=== PATIENT | female | born 1940 | race Hispanic/Latino ===

== ENCOUNTER 2016-07-01 10:25 | Emergency (ER) | payer MEDICARE, MEDICAID ==
[2016-07-01] MEDS ORDERED: Promethazine/Cod 6.25mg-10mg/5ml Syr UD ONE (11:07)
[2016-07-01 11:08] VITALS: TEMP 98
[2016-07-01] MEDS ORDERED: Albuterol-Ipratrop 3 mg / 0.5 (3 ml) UD INH STA ×2 (11:08→11:09)
[2016-07-01] MEDS ORDERED: Promethazine 6.25 MG/5 ML CUP PO STA (11:08)
--- NOTE | 2016-07-01 11:11 | ED PDOC ---
HPI: CCC, URI, Sore Throat Time Seen by Provider: 07/01/16 10:46 Chief Complaint (Nursing): Cough, Cold, Congestion Chief Complaint (Provider): Cough History Per: Patient History/Exam Limitations: no limitations Have you had recent travel within the past 21 days to any of the following countries: [place], [place], [place] or [place]?: Yes Other Location:: [place] Onset/Duration Of Symptoms: Days (1 week) Current Symptoms Are (Timing): Still Present Location Of Pain: Other (chest pain present during cough) Associated Symptoms: Cough, Sputum. denies: Fever, Chills, Other (dyspnea) Severity: Moderate Additional Complaint(s): Irish Malave is a 75 year old female, with a past medical history of hypothyroidism, who presents to the emergency department for the evaluation of a productive cough, that the patient has been experiencing for 1 week. Patient was recently seen by her primary medical doctor in which she had a chest x-ray done with no signs of infection. She recently traveled to [place], during which time her cough showed signs of improvement; however, upon re-arrival to [place] , her cough worsened and began producing phlegm. Associated chest pain is present when the patient coughs. Denies a fever, chills, or shortness of breath. Of note, patient reports that she has never smoked in her life. PMD: Don Aj Past Medical History Reviewed: Historical Data, Nursing Documentation, Vital Signs Vital Signs: Last Vital Signs Temp 98.0 F 07/01/16 11:06 Pulse 80 07/01/16 16:58 Resp 20 07/01/16 16:58 BP 135/77 07/01/16 16:58 Pulse Ox 98 07/01/16 16:58 - Medical History PMH: Anxiety, Hypothyroidism - Surgical History Other surgeries: Right Heel Surgery - Family History Family History: States: No Known Family Hx - Social History Current smoker - smoking cessation education provided: No Ex-Smoker (has not smoked in the last 12 months): No Alcohol: None Drugs: Denies - Home Medications Home Medications: Ambulatory Orders Medication Instructions Recorded Albuterol HFA [Ventolin HFA 90 2 puff IH Q4H PRN #1 inh 07/01/16 mcg/actuation (8 g)] Azithromycin 1 tab PO DAILY #6 tab 04/28/17 Prednisone 50 mg PO DAILY #4 tablet 07/01/16 - Allergies Allergies/Adverse Reactions: Allergies Allergy/AdvReac Type Severity Reaction Status Date / Time No Known Allergies Allergy Verified 07/01/16 11:05 Review of Systems ROS Statement: Except As Marked, All Systems Reviewed And Found Negative Constitutional: Negative for: Fever, Chills Cardiovascular: Positive for: Chest Pain (present when patient coughs) Respiratory: Positive for: Cough, Sputum. Negative for: Shortness of Breath Physical Exam - Reviewed Nursing Documentation Reviewed: Yes Vital Signs Reviewed: Yes - Physical Exam Appears: Positive for: Non-toxic, No Acute Distress Head Exam: Positive for: ATRAUMATIC, NORMOCEPHALIC Skin: Positive for: Normal Color, Warm, Dry ENT: Positive for: Normal ENT Inspection. Negative for: Pharyngeal Erythema, Tonsillar Exudate, Tonsillar Swelling Neck: Positive for: Normal, Painless ROM Cardiovascular/Chest: Positive for: Regular Rate, Rhythm. Negative for: Murmur Respiratory: Positive for: Wheezing (b/l expiratory wheeze), Respiratory Distress. Negative for: Normal Breath Sounds Gastrointestinal/Abdominal: Positive for: Normal Exam, Soft. Negative for: Tenderness Back: Positive for: Normal Inspection. Negative for: L CVA Tenderness, R CVA Tenderness Extremity: Positive for: Normal ROM. Negative for: Tenderness Neurologic/Psych: Positive for: Alert, Oriented - Laboratory Results Result Diagrams: 07/01/16 13:00 07/01/16 13:00 - ECG O2 Sat by Pulse Oximetry: 97 (RA) Pulse Ox Interpretation: Normal Medical Decision Making Medical Decision Makin:46 Initial Impression: allergic bronchospasm Initial Plan: * Chest X-Ray * Peak Flow Pre/Post Treatment (x2) * Albuterol/Iptratropium 3 ml INH (x2) * Promethazine 25 mg PO * predniSONE 40 mg PO * Reevaluation Scribe Attestation: Documented by Luis Carlos Steve, acting as a scribe for Carlene aCmara MD. Provider Scribe Attestation: All medical record entries made by the Scribe were at my direction and personally dictated by me. I have reviewed the chart and agree that the record accurately reflects my personal performance of the history, physical exam, medical decision making, and the department course for this patient. I have also personally directed, reviewed, and agree with the discharge instructions and disposition. Disposition - Clinical Impression Clinical Impression: Bronchitis - Disposition Disposition: Transfer of Care Disposition Time: 15:00 Condition: IMPROVED Additional Instructions: FOLLOW UP SCHEDULED WITH YOUR PMD ON MONDAY Prescriptions: Albuterol HFA [Ventolin HFA 90 mcg/actuation (8 g)] 2 puff IH Q4H PRN #1 inh PRN Reason: ASTHMA Azithromycin 1 tab PO DAILY #6 tab Prednisone 50 mg PO DAILY #4 tablet Instructions: Acute Bronchitis (ED), Wheezing (ED) Patient Signed Over To: Veronica Renee Handoff Comments: pending CTA
[2016-07-01] MEDS ORDERED: Promethazine 6.25 MG/5 ML CUP ONE (11:19)
--- NOTE | 2016-07-01 12:06 | RAD ---
HISTORY: cough, wheezing COMPARISON: No prior. TECHNIQUE: Chest PA and lateral FINDINGS: LUNGS: The lungs are clear. There is no focal consolidation. PLEURA: No significant pleural effusion identified. No pneumothorax apparent. CARDIOVASCULAR: Normal. OSSEOUS STRUCTURES: No significant abnormalities. VISUALIZED UPPER ABDOMEN: Normal. OTHER FINDINGS: None. IMPRESSION: No active pulmonary disease.
[2016-07-01 13:12] LABS: BASO % 0.9 % (0.0-2.0); EOS # 0.2 K/uL (0.0-0.7); EOS % 3.4 % (0.0-4.0); HEMATOCRIT 40.5 % (34.0-47.0); LYMPH # 1.3 K/uL (1.0-4.3); LYMPH % 26.9 % (20.0-40.0); MEAN CELL VOLUME 96.5 fl (81.0-99.0); MEAN CORPUSCULAR HEMOGLOBIN 32.7 pg (27.0-31.0); MEAN CORPUSCULAR HGB CONC 33.9 g/dL (33.0-37.0); MEAN PLATELET VOLUME 8.8 fl (7.2-11.7); MONO # 0.5 K/uL (0.0-0.8); MONO % 9.6 % (0.0-10.0); NEUT # 2.9 K/uL (1.8-7.0); NEUT % 59.2 % (50.0-75.0); RED CELL DISTRIBUTION WIDTH 14.5 % (11.5-14.5); WHITE BLOOD COUNT 4.9 K/uL (4.8-10.8)
[2016-07-01 13:23] LABS: BLOOD UREA NITROGEN 17 mg/dl (7-17); CALCIUM 9.2 mg/dL (8.4-10.2); CARBON DIOXIDE 29 mmol/L (22-30); CHLORIDE 105 mmol/L (98-107); GFR AFRICAN-AMERICAN 53; GLUCOSE,RANDOM 146 mg/dL (65-105); POTASSIUM 3.8 MMOL/L (3.6-5.0); SODIUM 143 mmol/l (132-148)
[2016-07-01] MEDS ORDERED: Iodixanol 320 MG/ML 100 ML BOTTLE IV ONE (15:19)
[2016-07-01] MEDS ORDERED: Sodium Chloride 0.9% 50 ML IV ONE (15:19)
--- NOTE | 2016-07-01 15:30 | ED PDOC ---
- Laboratory Results Result Diagrams: 07/01/16 13:00 07/01/16 13:00 - ECG O2 Sat by Pulse Oximetry: 97 (RA) Medical Decision Making Medical Decision Makin:00 Patient transferred over to provider by Dr. Concepcion. Pending ER workup, re- assessment, and final disposition. Accession No. : [id number] Patient Name / ID : MILLA CAVANAUGH / [id number] Exam Date : 07/01/2016 15:35:49 ( Approved ) Study Comment : Sex / Age : F / 75Y Creator : Daniel Cobb MD Dictator : Daniel Cobb MD Metal Furniture Polisher : Mason Liner : Daniel Cobb MD Approver2 : Report Date : 07/01/2016 16:06:30 My Comment : PROCEDURE: CT Chest with contrast (Pulmonary Angiogram) HISTORY: r/o PE COMPARISON: None available. TECHNIQUE: Axial computed tomography images were obtained of the chest in the pulmonary arterial phase of enhancement. Coronal and sagittal reformatted images were created and reviewed. Maximum intensity projection (MIP) reconstructed images in the following planes : Axial projection only. Intravenous contrast dose: 80 cc Visipaque 320. Radiation dose: Total exam DLP = 347.75 mGy-cm. This CT exam was performed using one or more of the following dose reduction techniques: Automated exposure control, adjustment of the mA and/or kV according to patient size, and/or use of iterative reconstruction technique. FINDINGS: PULMONARY ARTERIES: Unremarkable. No pulmonary embolism. AORTA: No acute findings. No thoracic aortic aneurysm. LUNGS: Dependent atelectasis at the lung bases. PLEURAL SPACES: Unremarkable. No effusion or pneuomothorax. HEART: Unremarkable. No cardiomegaly. No significant pericardial effusion. LYMPH NODES: No lymphadenopathy. BONES, CHEST WALL: Unremarkable. No fracture or destructive lesion OTHER FINDINGS: Enlargement of the right thyroid lobe. Jimmie elective thyroid ultrasound advised. IMPRESSION: Unremarkable CT pulmonary angiogram. No pulmonary embolus. Additional benign and/or incidental findings described above. 430p On reeval pt's breathing comfortably. No wheeze on auscultation. DW pt findings and plan of care. Will be rx'd as acute bronchitis and pt has f/u with PMD July 05. Reasons to RTER reviewed and pt eager to go home. Scribe Attestation: Documented by Luis Carlos Steve, acting as a scribe for Veronica Renee MD. Provider Scribe Attestation: All medical record entries made by the Scribe were at my direction and personally dictated by me. I have reviewed the chart and agree that the record accurately reflects my personal performance of the history, physical exam, medical decision making, and the department course for this patient. I have also personally directed, reviewed, and agree with the discharge instructions and disposition. Disposition Counseled Patient/Family Regarding: Studies Performed, Diagnosis, Need For Followup, Rx Given - Clinical Impression Clinical Impression: Bronchitis - POA Present On Arrival: None - Disposition Disposition: Routine/Home Disposition Time: 16:30 Condition: IMPROVED Additional Instructions: FOLLOW UP SCHEDULED WITH YOUR PMD ON MONDAY Prescriptions: Albuterol HFA [Ventolin HFA 90 mcg/actuation (8 g)] 2 puff IH Q4H PRN #1 inh PRN Reason: ASTHMA Azithromycin 1 tab PO DAILY #6 tab Prednisone 50 mg PO DAILY #4 tablet Instructions: Acute Bronchitis (ED), Wheezing (ED)
--- NOTE | 2016-07-01 16:08 | CT ---
PROCEDURE: CT Chest with contrast (Pulmonary Angiogram) HISTORY: r/o PE COMPARISON: None available. TECHNIQUE: Axial computed tomography images were obtained of the chest in the pulmonary arterial phase of enhancement. Coronal and sagittal reformatted images were created and reviewed. Maximum intensity projection (MIP) reconstructed images in the following planes: Axial projection only. Intravenous contrast dose: 80 cc Visipaque 320. Radiation dose: Total exam DLP = 347.75 mGy-cm. This CT exam was performed using one or more of the following dose reduction techniques: Automated exposure control, adjustment of the mA and/or kV according to patient size, and/or use of iterative reconstruction technique. FINDINGS: PULMONARY ARTERIES: Unremarkable. No pulmonary embolism. AORTA: No acute findings. No thoracic aortic aneurysm. LUNGS: Dependent atelectasis at the lung bases. PLEURAL SPACES: Unremarkable. No effusion or pneuomothorax. HEART: Unremarkable. No cardiomegaly. No significant pericardial effusion. LYMPH NODES: No lymphadenopathy. BONES, CHEST WALL: Unremarkable. No fracture or destructive lesion OTHER FINDINGS: Enlargement of the right thyroid lobe. Jimmie elective thyroid ultrasound advised. IMPRESSION: Unremarkable CT pulmonary angiogram. No pulmonary embolus. Additional benign and/or incidental findings described above.
[2016-07-01 17:00] VITALS: BP 135/77; PULSE 80; RESP 20
[2016-07-04 20:46] VITALS: O2SAT 97
== END 2016-07-01 17:03 | disposition home or self-care (01) ==
LOC: H.ER 10:25
DX: J20.9 Acute bronchitis, unspecified (principal); R06.2 Wheezing; R05 Cough; E03.9 Hypothyroidism, unspecified
CPT/HCPCS: 71020; 71275; 80048; 83880; 84484; 85025; 85378; 87804; 94640; 99283; Q9967

== ENCOUNTER 2017-03-07 18:31 | Emergency (ER) | payer MEDICARE, MEDICAID ==
[2017-03-07 18:52] VITALS: RESP 18; TEMP 97.5; O2SAT 95
[2017-03-07] MEDS ORDERED: Sodium Chloride 0.9% 1,000 ML IV STA (19:06)
--- NOTE | 2017-03-07 19:25 | ED PDOC ---
HPI: Abdomen Time Seen by Provider: 03/07/17 18:56 Chief Complaint (Nursing): Abdominal Pain Chief Complaint (Provider): abdominal pain History Per: Patient History/Exam Limitations: no limitations Onset/Duration Of Symptoms: Days (2), Gradual Current Symptoms Are (Timing): Still Present Context: Food Severity: Moderate Location Of Pain/Discomfort: LLQ, Periumbilical (radiate to back) Quality Of Discomfort: Sharp Associated Symptoms: Nausea, Vomiting, Loss Of Appetite, Back Pain, Constipation. denies: Diarrhea, Chest Pain, Urinary Symptoms Exacerbating Factors: Food Alleviating Factors: None Last Bowel Movement: Yesterday Additional Complaint(s): 76yo female c/o central to lower left abd pain radiating to the back associated with nausea and several episodes nonbloody vomiting. Denies diarrhea, fever, urinary symptoms, cough or prior history of similar. Last BM yesterday normal. States had R neck surgery for "tumor" at [facility] about 6 wks ago. Denies pain to that area. Due to followup, unsure if she requires chemo or other treatment. Hx of HIV xapprox 5 years on HAART T cells around 400 per pt/ Past Medical History Reviewed: Historical Data, Nursing Documentation, Vital Signs Vital Signs: Last Vital Signs Temp 97.5 F L 03/07/17 18:48 Pulse 78 03/07/17 18:48 Resp 18 03/07/17 18:48 BP 180/94 H 03/07/17 18:48 Pulse Ox 95 03/07/17 20:20 - Medical History PMH: Anxiety, HIV, Hypothyroidism Other PMH: thyroid - Surgical History Other surgeries: R neck surgery, thyroid - Family History Family History: States: Unknown Family Hx - Living Arrangements Living Arrangements: With Family (visiting from [place]) - Social History Current smoker - smoking cessation education provided: No - Home Medications Home Medications: Ambulatory Orders Medication Instructions Recorded Albuterol HFA [Ventolin HFA 90 2 puff IH Q4H PRN #1 inh 07/01/16 mcg/actuation (8 g)] Azithromycin 1 tab PO DAILY #6 tab 07/01/16 Prednisone 50 mg PO DAILY #4 tablet 07/01/16 Dicyclomine [Dicyclomine HCl] 10 mg PO Q8 PRN #10 cap 03/07/17 Ibuprofen [Motrin Tab] 600 mg PO Q6 PRN #15 tab 03/07/17 Ondansetron [Zofran] 4 mg PO Q6H PRN #10 tab 03/07/17 - Allergies Allergies/Adverse Reactions: Allergies Allergy/AdvReac Type Severity Reaction Status Date / Time No Known Allergies Allergy Verified 07/01/16 11:05 Review of Systems Constitutional: Positive for: Malaise Eyes: Negative for: Pain, Conjunctivae Inflammation ENT: Negative for: Nose Discharge, Throat Pain Cardiovascular: Negative for: Chest Pain, Palpitations Respiratory: Negative for: Cough, Shortness of Breath Gastrointestinal: Positive for: Nausea, Vomiting, Abdominal Pain. Negative for : Hematochezia, Hematemesis Genitourinary Female: Negative for: Dysuria, Hematuria Musculoskeletal: Positive for: Back Pain. Negative for: Neck Pain, Arm Pain, Leg Pain Skin: Negative for: Rash, Lesions, Jaundice Neurological: Negative for: Weakness, Numbness, Headache, Dizziness Psych: Negative for: Suicidal ideation Physical Exam - Reviewed Nursing Documentation Reviewed: Yes Vital Signs Reviewed: Yes - Physical Exam Appears: Positive for: Well, Non-toxic, No Acute Distress Head Exam: Positive for: ATRAUMATIC, NORMAL INSPECTION, NORMOCEPHALIC Skin: Positive for: Normal Color, Warm, DRY Eye Exam: Positive for: EOMI, Normal appearance, PERRL ENT: Positive for: Other (R neck incision from lower jaw to anterior ear intact , dry, nontender). Negative for: Nasal Congestion Neck: Positive for: Normal, Painless ROM Cardiovascular/Chest: Positive for: Regular Rate, Rhythm Respiratory: Positive for: Normal Breath Sounds. Negative for: Decreased Breath Sounds Gastrointestinal/Abdominal: Positive for: Bowel Sounds, Soft, Tenderness ( periumbilical and LLQ), Guarding Back: Positive for: Normal Inspection Extremity: Positive for: Normal ROM Neurologic/Psych: Positive for: Alert, Oriented. Negative for: Motor/Sensory Deficits - Laboratory Results Result Diagrams: 03/07/17 19:35 03/07/17 19:35 - ECG O2 Sat by Pulse Oximetry: 95 Medical Decision Making Medical Decision Making: workup for abd pain initiated with labs, UA and CT abd pelv r/o diverticulitis, appendicitis or obstruction Given toradol, zofran and IVF bolus and monitored for improvement labs reviewed, unremarkable FINDINGS: Lower thorax: Subsegmental atelectasis versus scarring at lung bases. ABDOMEN: Liver: Hepatomegaly. Gallbladder and bile ducts: Cholecystectomy. No ductal dilation. Pancreas: Unremarkable. No mass. No ductal dilation. Spleen: Unremarkable. No splenomegaly. Adrenals: Unremarkable. No mass. Kidneys and ureters: Bilateral renal cortical cysts. No hydronephrosis. Stomach and bowel: Colonic diverticulosis. Appendix: No findings to suggest acute appendicitis. PELVIS: Bladder: Unremarkable. No mass. Reproductive: Unremarkable as visualized. ABDOMEN and PELVIS: Intraperitoneal space: Unremarkable. No free air. No significant fluid collection. AFSHAN LOYOLA | Final Radiology Report CONFIDENTIALITY STATEMENT This report is intended only for use by the referring physician, and only in accordance with law. If you received this in error, call [phone]. Page 2 of 2 Bones/joints: Dextroscoliosis. Diffuse lumbar degenerative changes. No acute fracture. No dislocation. Soft tissues: Small fat containing umbilical hernia. Vasculature: Atherosclerotic vascular disease. No abdominal aortic aneurysm. Lymph nodes: Unremarkable. No enlarged lymph nodes. IMPRESSION: 1. Diverticulosis, without evidence of acute diverticulitis. 2. Remainder of findings as above. Thank you for allowing us to participate in the care of your patient. Dictated and Authenticated by: Matthew Betts MD 03/07/2017 11:41 PM Eastern Time ([place] & [place]) On re-eval at 1145pm pain improved, abdomen nontender, no vomiting, tolerated PO , ambulating to BR without difficulty. DC from ED w yoanna emanuel and motrin Followup PMD/ GI Disposition - Clinical Impression Clinical Impression: Abdominal discomfort, Vomiting - Patient ED Disposition Is Patient to be Admitted: No Counseled Patient/Family Regarding: Studies Performed, Diagnosis, Need For Followup, Rx Given - Disposition Referrals: Ried ZULUAGA,MD Gini [Medical Doctor] - Disposition: Routine/Home Disposition Time: 23:49 Condition: STABLE Additional Instructions: Advance diet slowly and as tolerated. Avoid dairy for 5-7 days. Return to ER for any fever, worse or new pain. Prescriptions: Dicyclomine [Dicyclomine HCl] 10 mg PO Q8 PRN #10 cap PRN Reason: Gi Distress Ibuprofen [Motrin Tab] 600 mg PO Q6 PRN #15 tab PRN Reason: Pain, Moderate (4-7) Ondansetron [Zofran] 4 mg PO Q6H PRN #10 tab PRN Reason: Nausea/Vomiting Instructions: Acute Nausea and Vomiting (ED), Acute Abdominal Pain (ED) Forms: [employer] (Swedish)
[2017-03-07 19:54] LABS: BASO # 0.1 K/uL (0.0-0.2); BASO % 0.9 % (0.0-2.0); EOS # 0.1 K/uL (0.0-0.7); EOS % 1.7 % (0.0-4.0); HEMOGLOBIN 14.3 g/dL (12.0-16.0); LYMPH # 2.6 K/uL (1.0-4.3); LYMPH % 40.6 % (20.0-40.0); MEAN CELL VOLUME 99.1 fl (81.0-99.0); MEAN CORPUSCULAR HEMOGLOBIN 32.5 pg (27.0-31.0); MEAN CORPUSCULAR HGB CONC 32.8 g/dL (33.0-37.0); MEAN PLATELET VOLUME 8.8 fl (7.2-11.7); MONO # 0.6 K/uL (0.0-0.8); MONO % 9.5 % (0.0-10.0); NEUT % 47.3 % (50.0-75.0); NRBC % 0.1 % (0.0-0.0); RBC 4.4 Mil/uL (3.80-5.20); RED CELL DISTRIBUTION WIDTH 13.9 % (11.5-14.5); WHITE BLOOD COUNT 6.3 K/uL (4.8-10.8)
[2017-03-07 19:56] LABS: URINE BACTERIA RARE (<OCC); URINE BILIRUBIN NEGATIVE (NEGATIVE); URINE BLOOD SMALL (NEGATIVE); URINE CLARITY CLEAR (Clear); URINE COLOR YELLOW (YELLOW); URINE GLUCOSE (UA) NEG (Normal); URINE LEUKOCYTE ESTERASE TRACE Leu/uL (Negative); URINE NITRATE NEGATIVE (NEGATIVE); URINE PROTEIN NEGATIVE (NEGATIVE); URINE UROBILINOGEN 0.2-1.0 mg/dL (0.2-1.0)
[2017-03-07 19:58] LABS: SQUAMOUS EPITHIAL 1 /hpf (0-5)
[2017-03-07 19:59] LABS: ALBUMIN 4.6 g/dL (3.5-5.0); CALCIUM 9.8 mg/dL (8.4-10.2)
[2017-03-07 20:08] LABS: ALB/GLOB RATIO 1.2 (1.0-2.1)
[2017-03-07] MEDS ORDERED: Iohexol 240 (50 ml) PO ONE (20:54)
[2017-03-07] MEDS ORDERED: Iohexol 240 (50 ml) ONE (20:56)
[2017-03-07] MEDS ORDERED: Iodixanol 320 MG/ML 100 ML BOTTLE IV ONE (22:46)
[2017-03-07] MEDS ORDERED: Sodium Chloride 0.9% 50 ML IV ONE (22:47)
--- NOTE | 2017-03-07 23:42 | CT ---
EXAM: CT Abdomen and Pelvis With Intravenous Contrast CLINICAL HISTORY: 76 years old, female; Pain; Abdominal pain; Localized; Left lower quadrant (llq); Additional info: Abdominal pain. Sent phy. Doc. TECHNIQUE: Axial computed tomography images of the abdomen and pelvis with intravenous contrast. All CT scans at this facility use one or more dose reduction techniques, viz.: automated exposure control; ma/kV adjustment per patient size (including targeted exams where dose is matched to indication; i.e. head); or iterative reconstruction technique. Coronal and sagittal reformatted images were created and reviewed. CONTRAST: 95 mL of [id number] administered intravenously. COMPARISON: No relevant prior studies available. FINDINGS: Lower thorax: Subsegmental atelectasis versus scarring at lung bases. ABDOMEN: Liver: Hepatomegaly. Gallbladder and bile ducts: Cholecystectomy. No ductal dilation. Pancreas: Unremarkable. No mass. No ductal dilation. Spleen: Unremarkable. No splenomegaly. Adrenals: Unremarkable. No mass. Kidneys and ureters: Bilateral renal cortical cysts. No hydronephrosis. Stomach and bowel: Colonic diverticulosis. Appendix: No findings to suggest acute appendicitis. PELVIS: Bladder: Unremarkable. No mass. Reproductive: Unremarkable as visualized. ABDOMEN and PELVIS: Intraperitoneal space: Unremarkable. No free air. No significant fluid collection. Bones/joints: Dextroscoliosis. Diffuse lumbar degenerative changes. No acute fracture. No dislocation. Soft tissues: Small fat containing umbilical hernia. Vasculature: Atherosclerotic vascular disease. No abdominal aortic aneurysm. Lymph nodes: Unremarkable. No enlarged lymph nodes. IMPRESSION: 1. Diverticulosis, without evidence of acute diverticulitis. 2. Remainder of findings as above.
[2017-03-08 00:17] VITALS: BP 151/89; PULSE 75
== END 2017-03-08 00:18 | disposition home or self-care (01) ==
LOC: H.ER 18:31
DX: R10.9 Unspecified abdominal pain (principal); R11.11 Vomiting without nausea; E03.9 Hypothyroidism, unspecified; B20 Human immunodeficiency virus [HIV] disease; F41.9 Anxiety disorder, unspecified
CPT/HCPCS: 74177; 80053; 81003; 83690; 85025; 96360; 99283; J1885; J2405; J7040; Q9966; Q9967